=== PATIENT | female | born 1960 | race Caucasian/White ===

== ENCOUNTER 2017-09-29 08:19 | Outpatient (CLI) | payer OTHER | END 2017-09-29 08:20 | disposition home or self-care (01) | LOC: BICMRI 08:19 | PROVIDERS: ATTEND Family Medicine | DX: S89.91XA Unspecified injury of right lower leg, initial encounter (principal); M25.561 Pain in right knee; S83.241A Other tear of medial meniscus, current injury, right knee, initial encounter; M17.11 Unilateral primary osteoarthritis, right knee ==

== ENCOUNTER 2018-10-10 08:47 | Outpatient (CLI) | payer OTHER ==
--- NOTE | 2018-10-10 09:47 | MMO ---
Bilateral MAMMO Bilat Screen DDI. CLINICAL HISTORY: Patient is 58 years old and is seen for screening. The patient has no family history of breast cancer. The patient has no personal history of cancer. VIEWS: The views performed were: bilateral craniocaudal and bilateral mediolateral oblique. FILMS COMPARED: The present examination has been compared to prior imaging studies performed at [facility] on 09/23/2016, and at [facility] on 09/27/2011 and 09/24/2013. This study has been interpreted with the assistance of computer-aided detection. MAMMOGRAM FINDINGS: There are scattered fibroglandular densities. Left breast: There are no suspicious masses, calcifications or areas of architectural distortion. Stable intramammary lymph node. Right breast: New cluster of calcifications in the mid depth right breast, posterior to the nipple. In the left breast, there are no suspicious masses, calcifications or areas of architectural distortion. IMPRESSION: FINDING IN THE RIGHT BREAST REQUIRES ADDITIONAL EVALUATION. ADDITIONAL PROJECTIONS (RIGHT CRANIOCAUDAL SPOT COMPRESSION MAGNIFICATION; RIGHT MEDIOLATERAL OBLIQUE SPOT COMPRESSION MAGNIFICATION; AND RIGHT MEDIOLATERAL SPOT COMPRESSION MAGNIFICATION) ARE RECOMMENDED. ACR BI-RADS Category 0 - Incomplete: Need additional imaging evaluation. [facility] will notify the patient of the need for additional imaging services. MAMMOGRAPHY NOTE: 1. A negative mammogram report should not delay a biopsy if a dominant of clinically suspicious mass is present. 2. Approximately 10% to 15% of breast cancers are not detected by mammography. 3. Adenosis and dense breasts may obscure an underlying neoplasm.
== END 2018-10-10 08:48 | disposition home or self-care (01) ==
LOC: SCSMAMMO 08:47
PROVIDERS: ATTEND Family Medicine
DX: Z12.31 Encounter for screening mammogram for malignant neoplasm of breast (principal)
CPT/HCPCS: 77067

== ENCOUNTER 2018-10-16 10:09 | Day surgery (SDC) | payer OTHER ==
[2018-10-15 14:25] VITALS: BMI 43.5
[2018-10-16] MEDS ORDERED: PHENYLEPHRINE-NS 100 MCG/ML 10 ML SYRINGE ONE (14:31)
[2018-10-16] MEDS ORDERED: ePHEDrine 50 MG/ML VIAL ONE (14:31)
[2018-10-16] MEDS ORDERED: Succinylcholine Chloride 20 MG/ML 10 ml SYRINGE FS ONE (14:31)
[2018-10-16] MEDS ORDERED: Rocuronium Bromide 10 MG/ML (10ML VIAL) ONE (14:31)
[2018-10-16] MEDS ORDERED: Ketorolac Tromethamine 30 MG/ML VIAL ONE ×2 (14:31→17:16)
[2018-10-16] MEDS ORDERED: PROPOFOL 200 MG/20 ML VIAL ONE (14:31)
[2018-10-16] MEDS ORDERED: Lidocaine 1% PF 5 ML VIAL ONE (14:31)
[2018-10-16] MEDS ORDERED: Glycopyrrolate 0.2 MG/ML 5 ML SYRINGE ONE (14:31)
[2018-10-16] MEDS ORDERED: Metoclopramide HCl 10 MG/2 ML VIAL ONE (14:31)
[2018-10-16] MEDS ORDERED: Ondansetron PF 4 MG/2 ML Vial ONE (14:31)
[2018-10-16] MEDS ORDERED: Sodium Chloride 0.9% 10 ML ONE (14:42)
[2018-10-16] MEDS ORDERED: Bupivacaine PF 0.5% 30 ML VIAL ONE (14:42)
[2018-10-16] MEDS ORDERED: Bacitracin Zinc Ointment 30 gm TUBE ONE (14:42)
[2018-10-16] MEDS ORDERED: Fentanyl 100 MCG/2 ML VIAL ONE (14:51)
[2018-10-16] MEDS ORDERED: Famotidine/PF 20 mg/2ml Vial ONE (14:51)
[2018-10-16] MEDS ORDERED: Betamet Acet/Betamet Na Ph 30 MG/5 ML VIAL ONE (15:52)
[2018-10-16] MEDS ORDERED: HYDROcodone/Acetaminophen 5/325 mg Tablet ONE (18:21)
--- NOTE | 2018-10-17 00:12 | OP ---
DATE OF PROCEDURE: 10/16/2018 PREOPERATIVE DIAGNOSIS: Right severe Dupuytren cord with contracture of 3 joints in 2 different digits, middle finger and ring finger of right upper extremity. FINDINGS: Thick cord, almost 8 mm that is thick, is attached to the end of proximal phalanx or PIP joint of the 2 affected fingers with digital nerve involvement. PROCEDURE PERFORMED: 1. Digital nerve neuroplasty of the radial and ulnar aspects of the ring finger. 2. Digital nerve neuroplasty, both under magnification, radial and ulnar nerve aspects of the middle finger, right. 3. Subtotal palmar fasciectomy with skin rearrangement using a Cristel incision Z-plasty lines first to remove the large cord which extended from the transverse carpal ligament all the way out on the middle finger to 2 to 5 mm distal to the PIP joint. DESCRIPTION OF PROCEDURE: After successful general LMA technique by [place] [employer], limb was prepped and draped. We gave first 10 mL of 0.5% Marcaine along the ulnar zigzag incision which incorporated both the proximal phalanges of the fingers, middle and ring. We then exsanguinated the limb, inflated to 250 mmHg pressure, and began the incision. We moved through the skin, dermis, epidermis, and then began dissection bluntly with a combination of tenotomy scissors and a right angle clamp for atraumatic dissection. We then identified the radial and ulnar digital nerves of the ring finger and the radial and ulnar digital nerves of the long finger and then traced compression and the fact that the ulnar nerve of the long finger was brought almost completely to the midline by the contracture and cord. Once we identified the cord and it from the neurovascular bundle, we released it distally from the skin x2 with 1 release leaving a 5 mm long x 3 mm wide skin defect which was closed primarily with 4-0 nylon. We then the ulnar nerve vascular bundles doing a neuroplasty, lifted the bundle of Dupuytren's from this as far distal as possible, it from the skin, underlying ligaments, and then dissected proximally until we were above the lesion. The patient then left the operating room after releasing the tourniquet following 37 minutes, with the neurovascular structures intact and the cord sent to Pathology as specimen. We placed 5 mL of Celestone in the wound, warned her about the possibility of a Dupuytren's flare, and the patient left the operating room in a soft dressing without a splint because she had such great mobility and no evidence of anesthetic or operative complications. Job ID: [id number]
== END 2018-10-16 18:40 | disposition home or self-care (01) ==
LOC: SDC 10:09 → EEVIPCON 10:09 → SDC 18:40
PROVIDERS: ATTEND Orthopaedic Surgery Hand Surgery
PROC: 0JNJ0ZZ Release Right Hand Subcutaneous Tissue and Fascia, Open Approach (ICD-10-PCS; principal; 2018-10-16)
DX: M72.0 Palmar fascial fibromatosis [Dupuytren] (principal); J44.9 Chronic obstructive pulmonary disease, unspecified; E11.9 Type 2 diabetes mellitus without complications; K21.9 Gastro-esophageal reflux disease without esophagitis; M48.02 Spinal stenosis, cervical region; Z88.1 Allergy status to other antibiotic agents; Z88.2 Allergy status to sulfonamides; Z88.8 Allergy status to other drugs, medicaments and biological substances; Z79.84 Long term (current) use of oral hypoglycemic drugs; Z79.82 Long term (current) use of aspirin; Z79.899 Other long term (current) drug therapy
CPT/HCPCS: 88304; J0131; J0690; J0702; J1885; J2001; J2405; J2704; J2765; J3010; J3490; S0020; S0028

== ENCOUNTER 2018-10-31 08:18 | Outpatient (CLI) | payer OTHER ==
--- NOTE | 2018-10-31 09:01 | MMO ---
Right Breast MAMMO Unilat Diag DDI RT+JOSE L. CLINICAL HISTORY: Patient is 58 years old and is seen for additional evaluation requested from prior study. The patient has no family history of breast cancer. The patient has no personal history of cancer. VIEWS: The views performed were: right craniocaudal spot compression magnification; right craniocaudal spot compression with tomosynthesis; right mediolateral oblique spot compression magnification; right mediolateral oblique spot compression with tomosynthesis; right mediolateral spot compression magnification; and right mediolateral with tomosynthesis. FILMS COMPARED: The present examination has been compared to prior imaging studies performed at [facility] on 10/10/2018, at [facility] on 09/23/2016, and at [facility] on 09/27/2011 and 09/24/2013. MAMMOGRAM FINDINGS: There are scattered fibroglandular densities. The calcs in the right mid breast are indeterminate and should be biopsied. The findings have been discussed with the patient at 8:55 am. IMPRESSION: FINDING IN THE RIGHT BREAST IS SUSPICIOUS. A STEREOTACTIC BREAST BIOPSY IS RECOMMENDED. THE RESULTS OF THIS EXAM WERE SENT TO THE PATIENT. ACR BI-RADS Category 4 - Suspicious abnormality - biopsy should be considered MAMMOGRAPHY NOTE: 1. A negative mammogram report should not delay a biopsy if a dominant of clinically suspicious mass is present. 2. Approximately 10% to 15% of breast cancers are not detected by mammography. 3. Adenosis and dense breasts may obscure an underlying neoplasm. Reported by: LUI QUEZADA MD Electonically Signed: [id number]
== END 2018-10-31 08:19 | disposition home or self-care (01) ==
LOC: BICMAMMO 08:18
PROVIDERS: ATTEND Family Medicine
DX: R92.2 Inconclusive mammogram (principal)
CPT/HCPCS: G0279

== ENCOUNTER → 2018-12-13 | Day surgery (SDC) | payer OTHER ==
--- NOTE | 2018-12-13 09:03 | MMO ---
MAMMOGRAPHIC GUIDED STEREOTACTIC BREAST BIOPSY PREPROCEDURE DIAGNOSIS: Right breast calcifications PROCEDURE: 1. Stereotactic biopsy of right breast calcifications with vacuum assistance 2. Specimen radiograph 3. Post procedure mammogram SOLUTIONS DEVELOPMENT ANALYST: [place] ANESTHESIA: 11 mL of buffered 1% lidocaine with epinephrine SPECIMEN: 24 -10-gauge vacuum-assisted core biopsy specimens TECHNIQUE: Prior to the procedure, the risks and benefits of stereotactic biopsy of the suspicious breast calcif ications were explained with the patient and full consent was obtained. The prior mammograms were reviewed showing calcifications in the 6:00 position of the right breast. The calcifications were localized with the stereotactic machine with approach from lateral. The breas t was prepped with Betadine. Lidocaine was used to anesthetize the skin and tissues surrounding the biopsy site. A skin incision was made to allowing for passage of the 10-gauge vacuum-assisted biopsy device. This device was then placed using stereotactic guidance into the region of the calcifications. 6 core biopsies were then performed. Calcifications were not seen in the initial specimen radiograph. 6 senthil tional core biopsies were performed. Calcifications were not seen in the second specimen radiograph. The needle was then slightly removed and the calcifications were still seen in the breast near the ar ea that was biopsied. The calcifications were re-localized with the stereotactic machine. 12 additional core biopsies were then performed showing calcifications within one of the surgical specim ens. A biopsy clip was then placed at the biopsy site. A postprocedure mammogram showed the clip in approp riate position at the biopsy site in the region where the suspicious calcification are seen on the preprocedure mammogram.
== END ==
LOC: MAMMO 11-29 06:47
PROVIDERS: ATTEND Family Medicine
PROC: 0HBU3ZX Excision of Left Breast, Percutaneous Approach, Diagnostic (ICD-10-PCS; principal; 2018-12-13)
DX: D24.1 Benign neoplasm of right breast (principal); N60.11 Diffuse cystic mastopathy of right breast; Z88.1 Allergy status to other antibiotic agents; Z88.8 Allergy status to other drugs, medicaments and biological substances
CPT/HCPCS: 19081; 76098; 88305

== ENCOUNTER 2019-02-20 13:31 | Outpatient (CLI) | payer OTHER ==
--- NOTE | 2019-02-26 09:55 | ULT ---
LOWER EXTREMITY ARTERIAL EVALUATION: Lower extremity arterial evaluation was performed using Doppler waveform analysis and segmental limb pressures. Examination of the right leg reveals well preserved signals throughout with an ankle-arm index of 1.1 3, and a toe-brachial index slightly diminished at 0.65. Left lower extremity demonstrates normal Dop pler waveforms at multiple levels with an ankle-arm index of 1.09 and a toe-brachial index of 0.83. This patient's demonstrates overall well preserved arterial circulation of the lower extremities with no significant abnormalities at rest.
== END 2019-02-20 13:32 | disposition home or self-care (01) ==
LOC: ULT 13:31
PROVIDERS: ATTEND Family Medicine
DX: R21 Rash and other nonspecific skin eruption (principal)
CPT/HCPCS: 93922

== ENCOUNTER 2019-04-17 14:10 | Outpatient (CLI) | payer OTHER ==
[2019-04-17] MEDS ORDERED: Magnevist 469MG/ML 20 ML VIAL ONE (15:14)
--- NOTE | 2019-04-17 16:16 | MRI ---
MRI thoracic spine without and with gadolinium contrast HISTORY: Worsening back pain. FINDINGS: Allowing for minimal physiologic wedging of T9 and T10, vertebral body heights and alignmen t are maintained. There is desiccation of all of the intervertebral discs. Mild discogenic endplate changes and Schmorl's nodes within the vertebral body endplates. Abnormal levels are as follows: T3-4, T4-5: Osteophytosis of the facets. Central canal and neural foramina are patent. T8-9: Disc space narrowing. Right posterior osteophyte/disc complex effaces the right ventral aspect of the thecal sac. There is slight leftward displacement of the spinal cord. No abnormal signal within the cord. Neural foramina remain patent. T11-12: Minimal disc bulge. Prominent circumferential degenerative changes. Moderate to severe stenos is of the central canal. Severe right and mild left foraminal stenoses. IMPRESSION: Degenerative changes are most pronounced, and symptoms are likely referable to the T11-12 level, where there is severe right foraminal stenosis and moderate to severe central canal stenosis. Clinical correlation regarding the right T11 dermatome is required. Osteophyte/disc complex to the right of midline at the T8-9 level, slightly effacing the right side o f the spinal cord. No evidence of myelomalacia.
--- NOTE | 2019-04-17 16:24 | MRI ---
MRI lumbar spine without and with gadolinium contrast HISTORY: Low back pain. FINDINGS: Vertebral body heights and alignment are maintained. Desiccation of all of the intervertebr al discs. Mild discogenic endplate changes within the bone marrow. T12-L1: Mild disc space narrowing. Small left posterolateral disc protrusion effacing the left ventra l aspect of the thecal sac. It does not significantly compromise the conus medullaris. A likely contacts the left T12 nerve root. Mild stenosis of the left neural foramen. L1-2: Minimal disc bulge. Circumferential degenerative changes. Mild stenosis of the central canal an d each neural foramen. L2-3, L3-4, L4-5: Minimal disc bulge. Central canal and neural foramina are patent. L5-S1: Mild osteophytosis. Central canal and neural foramina are patent. IMPRESSION: Small left posterolateral disc protrusion at the T12-L1 level, possibly contacting the le ft T12 nerve root. Clinical correlation regarding the left T12 dermatome is required. Otherwise mild degenerative changes throughout the remainder of the lumbar spine.
== END 2019-04-17 14:11 | disposition home or self-care (01) ==
LOC: BICMRI 14:10
PROVIDERS: ATTEND Family Medicine
DX: M54.5 Low back pain (principal); M54.6 Pain in thoracic spine; M51.25 Other intervertebral disc displacement, thoracolumbar region; M47.816 Spondylosis without myelopathy or radiculopathy, lumbar region
CPT/HCPCS: 72157; 72158; 82565; A9579